=== PATIENT | male | born 1935 | race Caucasian/White ===

== ENCOUNTER 2016-09-11 08:41 | Emergency (ER) | payer OTHER, MEDICARE ==
--- NOTE | 2016-09-11 09:20 | EDPHY ---
H & P Stated Complaint: Left hand ring finger infection. Time Seen by Provider: 09/11/16 08:57 HPI/ROS: CHIEF COMPLAINT: Finger infection HISTORY OF PRESENT ILLNESS: The patient is an 81-year-old man who comes to the emergency department complaining of an infection at the fingernail of his left ring finger. He states that it began about 2 weeks ago. He has been trying to use antibiotic ointments without significant improvement. It is painful when he tries type of the computer. He has not had any discharge. No fevers. REVIEW OF SYSTEMS: Constitutional: denies: chills, fever, recent illness, recent injury EENTM: denies: blurred vision, double vision, nose congestion Respiratory: denies: cough, shortness of breath Cardiac: denies: chest pain, irregular heart rate, lightheadedness, palpitations Gastrointestinal/Abdominal: denies: abdominal pain, diarrhea, nausea, vomiting, blood streaked stools Genitourinary: denies: dysuria, frequency, hematuria, pain Musculoskeletal: denies: joint pain, muscle pain Skin: See HPI Neurological: denies: headache, numbness, paresthesia, tingling, dizziness, weakness Hematologic/Lymphatic: denies: blood clots, easy bleeding, easy bruising Immunologic/allergic: denies: HIV/AIDS, transplant EXAM: GENERAL: Well-appearing, well-nourished and in no acute distress. HEAD: Atraumatic, normocephalic. EYES: Pupils equal round and reactive to light, extraocular movements intact, sclera anicteric, conjunctiva are normal. ENT: TMs normal, nares patent, oropharynx clear without exudates. Moist mucous membranes. NECK: Normal range of motion, supple without lymphadenopathy or JVD. LUNGS: Breath sounds clear to auscultation bilaterally and equal. No wheezes rales or rhonchi. HEART: Regular rate and rhythm without murmurs, rubs or gallops. ABDOMEN: Soft, nontender, normoactive bowel sounds. No guarding, no rebound. No masses appreciated. BACK: No CVA tenderness, no spinal tenderness, step-offs or deformities EXTREMITIES: Normal range of motion, no pitting or edema. No clubbing or cyanosis. NEUROLOGICAL: Cranial nerves II through XII grossly intact. Normal speech, normal gait. 5/5 strength, normal movement in all extremities, normal sensation PSYCH: Normal mood, normal affect. SKIN: Patient has what appears to be ingrown fingernail versus paronychia on the lateral aspect of his left ring finger. No visible felon. No joint swelling or inflammation. Source: Patient Exam Limitations: No limitations - Personal History Current Tetanus/Diphtheria Vaccine: Yes Current Tetanus Diphtheria and Acellular Pertussis (TDAP): Yes Tetanus Vaccine Date: pt will check with his doctor on Thursday; may have gotten booster last month - Medical/Surgical History Hx Asthma: No Hx Chronic Respiratory Disease: No Hx Diabetes: No Hx Cardiac Disease: No Hx Renal Disease: No Hx Cirrhosis: No Hx Alcoholism: No Hx HIV/AIDS: No Hx Splenectomy or Spleen Trauma: No Other PMH: medical Gout, hernia right inguinal area. surgery Colonoscopy with polyp removal - Family History Significant Family History: No pertinent family hx - Social History Smoking Status: Never smoked Alcohol Use: Sober Drug Use: None Constitutional: Initial Vital Signs Temperature (C) 36.1 C 09/11/16 08:44 Heart Rate 71 09/11/16 08:44 Respiratory Rate 95 H 09/11/16 08:44 Blood Pressure 122/63 H 09/11/16 08:44 O2 Delivery Mode Room Air Allergies/Adverse Reactions: No Known Allergies Allergy (Unverified 05/23/09 17:53) Home Medications: Medication Instructions Recorded NK [No Known Home Meds] 09/11/16 Medical Decision Making Procedures: The patient's finger was anesthetized with 0.5% bupivacaine digital block. After good anesthesia was obtained the lateral aspect of the patient's fingernail was removed. Less than 1 cc of purulent drainage was obtained. The patient tolerated the procedure well. ED Course/Re-evaluation: The patient's finger nail margin was removed. Purulent drainage obtained. The finger was cleaned and dressed. Patient is unsure of his tetanus status and is declining update here but will follow up with his primary care doctor Ilsa Nicole. He declines prescription pain medication. We discussed indications for returning. Differential Diagnosis: Partial list of the Differential diagnosis considered include but were not limited to; ingrown fingernail, paronychia, felon and although unlikely based on the history and physical exam, I also considered trauma, gout, joint infection, fracture. I discussed these differential diagnoses and the plan with the patient as well as the usual and expected course. The patient understands that the diagnosis is provisional and that in medicine we are not always correct and that further workup is often warranted. Usual and customary warnings were given. All of the patient's questions were answered. The patient was instructed to return to the emergency department should the symptoms at all worsen or return, otherwise to followup with the physician as we discussed. Departure - Departure Disposition: Home, Routine, Self-Care Clinical Impression: Ingrown fingernail Condition: Fair Instructions: Paronychia (ED) Referrals: Ilsa Nicole MD [Primary Care Provider] - As per Instructions
[2016-09-11 10:02] VITALS: BP 103/66; PULSE 63; RESP 16; TEMP 98.2; O2SAT 97
== END 2016-09-11 10:01 | disposition home or self-care (01) ==
PROC: 0HTQXZZ Resection of Finger Nail, External Approach (ICD-10-PCS; principal; 2016-09-11)
DX: L60.0 Ingrowing nail (principal)

== ENCOUNTER 2017-07-23 14:43 | Emergency (ER) | payer OTHER, MEDICARE ==
[2017-07-23] MEDS ORDERED: NS 1,000 ML IV ONE ×2 (14:46→17:37)
--- NOTE | 2017-07-23 14:46 | EDPHY ---
H & P HPI/ROS: CHIEF COMPLAINT: Left abdominal pain HISTORY OF PRESENT ILLNESS: The patient is an 82 y/o male with a history of kidney stones arriving via EMS with severe left-sided abdominal and flank pain. Onset of severe left-sided pain at 13:00, 2 hours ago. He had difficulty urinating or earlier today and the pain started afterwards. The pain initially started in the lower left abdomen and is radiating to his back. No hematuria or dysuria. While en route to the ED he was administered a total of 100mcg IV Fentanyl and 4mg IV Zofran. The pain is currently an 8-910. Denies chest pain, shortness of breath, bowel complaints, fever or other pertinent symptoms. REVIEW OF SYSTEMS: Aside from elements discussed in the HPI, a comprehensive 10-point review of systems was reviewed and is negative. Past Medical/Surgical History: Right inguinal hernia surgery, kidney stones, gout Social History: Lives in [place], , retired Smoking Status: Never smoked Physical Exam: General Appearance: Alert, pleasant, appears comfortable Eyes: Pupils equal and round, no conjunctival pallor ENT, Mouth: Mucous membranes moist Neck: Normal inspection Respiratory: Lungs are clear to auscultation Cardiovascular: Regular rate and rhythm Gastrointestinal: LUQ tenderness, no pulsatile mass Back: No CVA tenderness Neurological: A&O, nonfocal Skin: Warm and dry, no rash Extremities: Normal inspection Psychiatric: Mood and affect normal Constitutional: Initial Vital Signs Temperature (C) 36.4 C 07/23/17 14:51 Heart Rate 72 07/23/17 14:51 Respiratory Rate 18 07/23/17 14:51 Blood Pressure 134/75 H 07/23/17 14:51 O2 Sat (%) 96 07/23/17 14:51 O2 Delivery Mode Room Air Allergies/Adverse Reactions: No Known Allergies Allergy (Unverified 05/23/09 17:53) Home Medications: Medication Instructions Recorded Hydrocodone/APAP 5/325 [[place] 1 - 2 tab PO Q4H PRN #15 tab 07/23/17 5/325 (*)] Medical Decision Making - Diagnostics Imaging Results: CT scan discussed with Dr. Vel Escobar reveals multiple distal left ureteral stone with moderate hydronephrosis. In addition there are multiple calcifications in the urinary bladder. Imaging: Discussed imaging studies w/ order desk caller Radiologist ED Course/Re-evaluation: The patient is an 82 y/o male with a history of kidney stones presents with left flank and abdominal pain, typical of prior kidney stone. CT scan of the abdomen pelvis ordered. Prior CT scan reviewed and reveals a normal caliber aorta in 2015. 1L IV NS and 15mg IV Toradol administered. 1500: Patient is still unable to urinate, bladder scan ordered. 1520: Bladder scan reveals 520ml in bladder. In/out urinary catheter placed by ED RN. 1556: Spoke with radiologist, he reports the patient has multiple kidney stones in his left ureter. 1557: Reassessed patient and discussed imaging findings. He is feeling better, but still as mild pain. 1717: Reassessed patient; Bladder scan: 90 mL of urine in his bladder. He was able to urinate a small amount. I will give him another L of normal saline to ensure that he is able to urinate normally before he goes home. 1854: Reassessed patient; he was able to urinate. Bladder scan after urination reveals 124mL. I will discharge him home and I do not think that he needs a Grider catheter at this point. He feels quite comfortable. He understands that if he is unable to urinate, he will need to return to the emergency department. I have advised him to take ibuprofen and Vicodin for the pain and follow up with his PCP. Return precautions provided; patient is comfortable with this plan. Differential Diagnosis: Differential diagnosis includes though it is not limited to appendicitis, cholecystitis, diverticulitis, pyelonephritis, bowel perforation, small bowel obstruction. - Data Points Laboratory Results: Laboratory Results 07/23/17 14:46 07/23/17 14:46 Medications Given: Discontinued Medications Hydrocodone Bitart/Acetaminophen ([place] 5/325mg Prepack#6) 1 btl TAKEHOME EDNOW ONE Stop: 07/23/17 18:58 Last Admin: 07/23/17 19:10 Dose: 1 btl Sodium Chloride (Ns) 1,000 mls @ 0 mls/hr IV EDNOW ONE; Wide Open PRN Reason: Protocol Stop: 07/23/17 14:47 Last Admin: 07/23/17 15:12 Dose: 1,000 mls Sodium Chloride (Ns) 1,000 mls @ 0 mls/hr IV ONCE ONE; Wide Open PRN Reason: Protocol Stop: 07/23/17 17:38 Last Admin: 07/23/17 17:46 Dose: 1,000 mls Ketorolac Tromethamine (Toradol) 15 mg IVP EDNOW ONE Stop: 07/23/17 14:54 Last Admin: 07/23/17 15:11 Dose: 15 mg Departure - Departure Disposition: Home, Routine, Self-Care Clinical Impression: Kidney stone Condition: Good Instructions: Hydrocodone/Acetaminophen (By mouth), Kidney Stones (ED) Additional Instructions: Take ibuprofen, 600mg every 6-8 hours with food, as needed for pain. Take Vicodin as prescribed for severe pain. Follow up with your PCP in one week. Return to the Emergency Department for intractable pain, fever or vomiting Referrals: Ilsa Nicole MD [Primary Care Provider] - As per Instructions Prescriptions: Hydrocodone/APAP 5/325 [[place] 5/325 (*)] 1 - 2 tab PO Q4H PRN #15 tab PRN Reason: Pain, Moderate Report Scribed for: Melissa Garcia Report Scribed by: Roma Leiva Date of Report: 07/23/17 Time of Report: 14:46 Physician Review and Approval Statement: 07/23/17 14:46 Portions of this note were transcribed by a medical anthropology director. I personally performed a history, physical exam, medical decision making, and confirmed accuracy of information the transcribed note.
[2017-07-23 14:53] VITALS: PULSE 72
[2017-07-23] MEDS ORDERED: KETOROLAC 15 MG/1 ML SDV IVP ONE (14:53)
[2017-07-23 15:00] LABS: PLATELET COUNT 141 10^3/uL (150-400)
[2017-07-23 16:33] VITALS: RESP 16; TEMP 98.2
[2017-07-23] MEDS ORDERED: HYDROCOD/APAP 5/325 PREPACK#6 BTL TAKEHOME ONE (18:57)
[2017-07-23 19:14] VITALS: BP 117/76; O2SAT 97
== END 2017-07-23 19:17 | disposition home or self-care (01) ==
LOC: EDUNIT#
DX: N20.0 Calculus of kidney (principal); E86.9 Volume depletion, unspecified
CPT/HCPCS: 74176; 96361; 96374; 99285; J1885; 82947-QW

== ENCOUNTER 2018-04-25 10:16 | Emergency (ER) | payer OTHER, MEDICARE ==
[2018-04-25 10:22] VITALS: BP 103/59
[2018-04-25] MEDS ORDERED: AMOXICILLIN/CLAVULANATE POT 875/125 MG TAB PO ONE (10:32)
--- NOTE | 2018-04-25 10:38 | EDPHY ---
H & P Stated Complaint: R tip middle finger inflamed Time Seen by Provider: 04/25/18 10:31 HPI/ROS: HPI: This is an 82-year-old male who presents with Chief Complaint: Tip of right middle finger Location: Tip of right middle finger Quality: Inflamed Duration: 3-4 days Signs and Symptoms: No bleeding, no radiation, no numbness, no weakness, no tingling, no incontinence, no decreased range of motion, + swelling, + pain, no fever Timing: Worsening Severity: Mild Context: Patient is right-hand dominant, presents with the tip of his right middle finger being inflamed for the last 3 days. He reports that the symptoms have worsened. It is painful to touch the area. No history of diabetes mellitus or trauma. He has tried nothing for the symptoms. Denies radiation, weakness, decreased range of motion. Does not bite his nails. Modifying Factors: None Comment: ROS: A comprehensive 10 system review of systems is otherwise negative aside from elements mentioned in the history of present illness. MEDICAL/SURGICAL/SOCIAL HISTORY: Medical history: Gout, hernia right inguinal area Surgical history: Denies Social history: Never smoked. Retired CONSTITUTIONAL: Nontoxic-appearing polite in elderly white male, at bedside awake and alert, no obvious distress HEENT: Atraumatic and normocephalic. NECK: supple EXTREMITIES: 2/2 pulses, strength 5/5, right middle finger proximal and lateral nail fold shows erythema, edema and painful to touch. Fluctuance noted. Purulent drainage seen with pressure on the nail. DIP/PIP/MCP flexion/ extension intact with good light touch sensation. no deformities, no clubbing, no cyanosis or edema. NEUROLOGICAL: no focal neuro deficits. GCS 15. Light touch sensation intact. SKIN: Warm and dry, no erythema. no rash. Good capillary refill. Source: Patient Exam Limitations: No limitations - Personal History Current Tetanus/Diphtheria Vaccine: Yes Current Tetanus Diphtheria and Acellular Pertussis (TDAP): Yes Tetanus Vaccine Date: 2016 - Medical/Surgical History Hx Asthma: No Hx Chronic Respiratory Disease: No Hx Diabetes: No Hx Cardiac Disease: No Hx Renal Disease: No Hx Cirrhosis: No Hx Alcoholism: No Hx HIV/AIDS: No Hx Splenectomy or Spleen Trauma: No Other PMH: Gout, hernia right inguinal area - Social History Smoking Status: Never smoked Constitutional: Initial Vital Signs Temperature (C) 36.7 C 10/21/18 10:19 Heart Rate 86 04/25/18 10:19 Respiratory Rate 16 04/25/18 10:19 Blood Pressure 103/59 L 04/25/18 10:19 O2 Sat (%) 97 04/25/18 10:19 O2 Delivery Mode Room Air Allergies/Adverse Reactions: No Known Allergies Allergy (Verified 04/25/18 10:18) Home Medications: Medication Instructions Recorded Amoxicillin/Clavulanate Pot 875 mg PO BID #14 tab 04/25/18 [Augmentin 875 MG TAB (*)] Medical Decision Making Procedures: Procedure: Abscess drainage. The patient's abscess was located on the right middle finger proximal nail fold and lateral nail fold. I obtained verbal consent from the patient to drain the abscess who was informed about the possibility of bleeding and pain. The abscess was incised with 18 gauge needle and a 3 mL amount of purulent drainage was expressed. I irrigated the wound, bacitracin clean sterile dressing applied. The patient tolerated the procedure well. The procedure was performed by myself. ED Course/Re-evaluation: Vital signs reviewed and stable upon arrival. History of diabetes mellitus. Paronychia I&D with 3 mL of discharge, copiously irrigated, bacitracin clean sterile dressing applied Given Augmentin and prescription for same. Verbal and written wound care instructions provided. No signs of neurovascular compromise/tenting of skin/compartment syndrome/ extremities and joints examined above and below area of concern and are neurovascularly intact. This patient was seen under the supervision of my secondary supervising physician. I evaluated care for this patient independently. Discussed this patient with Dr. Garcia. Differential Diagnosis: Differential diagnosis includes but is not limited to paronychia, felon, tenosynovitis. - Data Points Medications Given: Discontinued Medications Amoxicillin/Clavulanate Potassium (Augmentin 875mg) 875 mg PO EDNOW ONE PRN Reason: Protocol Stop: 04/25/18 10:33 Last Admin: 04/25/18 10:37 Dose: 875 mg Departure - Departure Disposition: Home, Routine, Self-Care Clinical Impression: Paronychia of right middle finger Condition: Good Instructions: Paronychia (ED) Additional Instructions: Keep the dressing dry and in place for 48 hours. After 48 hours, you may remove the dressing; wash the site daily with mild soap and water; then pat dry. Apply topical antibiotic ointment daily and keep covered with clean sterile dressing until fully healed. Do not take a bath or soak in water until fully healed.. Take Tylenol 650 mg every 4 hours and/or Ibuprofen 600 mg every 8 hours with food as needed for pain. Take antibiotics as directed. Do not skip a dose. Return to the ER immediately if you experience redness, red streaks, have fevers /chills, flu like symptoms, limited range of motion, or any other symptoms that concern you. Referrals: Ilsa Nicole MD [Primary Care Provider] - 5-7 days, if not improved Prescriptions: Amoxicillin/Clavulanate Pot [Augmentin 875 MG TAB (*)] 875 mg PO BID #14 tab
== END 2018-04-25 10:51 | disposition home or self-care (01) ==
PROC: 0H9QXZZ Drainage of Finger Nail, External Approach (ICD-10-PCS; principal; 2018-04-25)
DX: L03.011 Cellulitis of right finger (principal)

== ENCOUNTER → 2018-12-21 | Outpatient (CLI) | payer OTHER, MEDICARE | LOC: FIMAGING 13:16 ==

== ENCOUNTER → 2018-12-31 | Outpatient (CLI) | payer OTHER, MEDICARE | LOC: FIMAGING 10:40 ==